=== PATIENT | male | born 1935 | race Caucasian/White ===

== ENCOUNTER 2020-09-03 23:59 | Inpatient (IN) | payer MEDICARE, SELFPAY ==
[~2020-09-03] VITALS: Ht 177.8 cm; Wt 66.7 kg
--- NOTE | 2020-09-04 00:01 | NUR ---
VIDAL CARRASCO TAKEN TO BED #3
[2020-09-04] MEDS ORDERED: NACL 0.9% 1,000 ML IV ONE (00:10)
[2020-09-04 00:11] VITALS: BP 121/64
[2020-09-04 00:30] LABS: BASOPHILS % (AUTO) 0.1 % (0.0-2.0); HEMATOCRIT 36.8 % (36-52); HEMOGLOBIN 12.5 g/dL (12.0-18.0); LYMPHOCYTES # (AUTO) 0.6 K/uL (2.0-11.5); LYMPHOCYTES % (AUTO) 6.7 % (20.5-51.1); MEAN CORPUSCULAR HEMOGLOBIN 31 pg (27-31); MEAN CORPUSCULAR HGB CONC 34 g/dL (33-37); MEAN CORPUSCULAR VOLUME 92.9 fL (80-94); MONOCYTES # (AUTO) 0.7 K/uL (0.8-1.0); MONOCYTES % (AUTO) 7.8 % (1.7-9.3); NEUTROPHILS % (AUTO) 85.4 % (42.2-75.2); PLATELET COUNT (AUTO) 153 K/uL (140-450); RED BLOOD CELL COUNT(AUTO) 3.97 MIL/uL (4.20-6.10); RED CELL DISTRIBUTION WIDTH 13.5 % (11.6-13.7); WHITE BLOOD COUNT (AUTO) 9.3 K/uL (4.8-10.8)
[2020-09-04 00:42] LABS: ANION GAP 12.7 (8-16); CARBON DIOXIDE 26.3 mmol/L (21-32); CHLORIDE 97 mmol/L (98-107); CREATININE 1.2 mg/dL (0.6-1.3); GLUCOSE 103 mg/dL (74-106); SODIUM SERUM 132 mmol/L (136-145); UREA NITROGEN, BLOOD 24 mg/dL (7-18)
--- NOTE | 2020-09-04 00:44 | NUR ---
X-Ray at bedside.
--- NOTE | 2020-09-04 00:48 | NUR ---
BLOOD DRAW DURING IV START
[2020-09-04 00:49] LABS: ASPARTATE AMINOTRANSFERASE 20 U/L (15-37); LIPASE 53 U/L (73-393); PROTHROMBIN TIME 10.7 secs (10.8-13.4); TOTAL BILIRUBIN 0.6 mg/dL (0.0-1.0)
--- NOTE | 2020-09-04 00:49 | NUR ---
85/M BIBA C/O INCREASED ALOC SINCE YESTERDAY. PT CAME IN WITH INDWELLING CATHETER. UPON ASSESSMENT PT AOX3 WITH SOME CONFUSION, PERRL. PT CALM AND COOPERATIVE TO CARE. DENIES ANY PAIN OR DISCOMFORT. PT FEBRILE, OTHER VS STABLE. PMH: HTN, DEMENTIA NKDA
--- NOTE | 2020-09-04 00:55 | NUR ---
PT TAKEN TO CT
--- NOTE | 2020-09-04 01:06 | NUR ---
PT BACK FROM CT
[2020-09-04 01:20] LABS: APPEARANCE,URINE CLOUDY (CLEAR); BILIRUBIN,URINE 1+ (NEGATIVE); BLOOD, URINE 3+ (NEGATIVE); COLOR,URINE YELLOW (YELLOW); LEUKOCYTE ESTERASE ,URINE 2+ (NEGATIVE); NITRITE, URINE NEGATIVE (NEGATIVE); PH,URINE 5.5 (5.0-9.0); UGLUCOSE NEGATIVE (NEGATIVE)
[2020-09-04 01:27] LABS: RBC,URINE 0-5 /HPF (0-5); WBC,URINE 20-60 /HPF (0-5)
[2020-09-04] MEDS ORDERED: ACETAMINOPHEN 325 MG TAB PO ONE (01:35)
[2020-09-04] MEDS ORDERED: PIPERACILLIN/TAZOBACTAM 3.375 GM in DEXTROSE 5% 50 ML IV ONE (01:35)
[2020-09-04] MEDS ORDERED: PIPERACILLIN/TAZOBACTAM 3.375 GM VIAL IV ONE (01:53)
[2020-09-04] MEDS ORDERED: AMLO5TAB PO (02:25)
[2020-09-04] MEDS ORDERED: TRAZ-343 PO (02:25)
[2020-09-04] MEDS ORDERED: BUPR150T12 PO (02:25)
[2020-09-04] MEDS ORDERED: TEMA30CA23 PO (02:25)
[2020-09-04] MEDS ORDERED: TAMS0.4C96 PO (02:25)
--- NOTE | 2020-09-04 03:38 | NUR ---
RECEIVED TELEPHONE REPORT FROM ER NURSE BETHANY. PT AOX2, CONFUSED ON ROOM AIR. CC ALOC. DX ALOC, UTI. HX HTN DEMENTIA, PROSTATE SX. FROM HOME. CXR NEGATIVE, HEAD CT NEGATIVE. SKIN INTACT. VIERA IN PLACE. WAS GIVEN TYLENOL, ZOSYN, NS 1L IN ER. IV SITE RAC 20G. TALAT NEGATIVE. WILL GET THE ROOM READY Addendum: 09/04/20 at 0409 by Douglas Ellison RN IV SITE RFA
--- NOTE | 2020-09-04 03:45 | NUR ---
Patient will be admitted to care of Dr. Vazquez. Admited to Telemetry. Will go to room 110B. Belongings list completed. Report to Douglas BUI. Pt transported by 2 RNs.
[2020-09-04 04:00] VITALS: BP 94/56
--- NOTE | 2020-09-04 04:00 | NUR ---
PATIENT ARRIVED TO UNIT. ON TELE, AOX2 ON ROOM AIR, CONFUSED. NO S/S RESPIRATORY DISTRESS. NO C/O PAIN AT THIS TIME. IV SITE RFA 20G PATENT INTACT. SKIN WARM DRY INTACT. LUNGS CLEAR. BOWEL SOUNDS ACTIVE. VIERA CATH IN PLACE, DRAINING YELLOW URINE, INSERTED BY ER ON 09/04/20. HAS HEARING AID TO LEFT EAR. ORIENTED TO ROOM. SAFETY MEASURES IN PLACE. CALL LIGHT WITHIN REACH. WILL CONTINUE TO MONITOR. MRSA SWAB AND VITAL SIGNS OBTAINED.
--- NOTE | 2020-09-04 04:12 | NUR ---
NOTIFIED WEIR FISHER DR. HUTTON PATIENT'S EKG BIGEMINY. NEW ORDERS RECEIVED
--- NOTE | 2020-09-04 04:45 | NUR ---
PATIENT ASLEEP IN BED. RESPIRATIONS EVEN UNLABORED. NO DISTRESS NOTED. CALL LIGHT WITHIN REACH. WILL CONTINUE TO MONITOR
--- NOTE | 2020-09-04 07:16 | NUR ---
ENDORSED PATIENT TO DAY RN FOR CONTINUITY OF CARE. PATIENT IS IN STABLE CONDITION
--- NOTE | 2020-09-04 07:17 | NUR ---
RECEIVED BEDSIDE REPORT FROM TECHNICAL OPERATOR NURSE. PATIENT SUPINE IN BED SLEEPING, ANSWERS TO NAME. BREATHING EVEN AND UNLABORED, NO SIGNS OF ACUTE DISTRESS NOTED ON RA. VIERA CATHETER IN PLACE, DRAINING TO GRAVITY. R FA 20G SL. SKIN INTACT. BED IN LOW POSITION, SOLE LEVELER MACHINE IN PLACE, SAFETY MEASURES IN PLACE.
[2020-09-04 08:00] VITALS: BP 109/75
[2020-09-04] MEDS ORDERED: DOCUSATE SODIUM 100 MG GELCAP PO PRN (08:50)
[2020-09-04] MEDS ORDERED: MORPHINE SULFATE 2 MG/ML SYR IVP PRN (08:50)
[2020-09-04] MEDS ORDERED: ONDANSETRON 4 MG/2 ML VIAL IVP PRN (08:50)
[2020-09-04] MEDS ORDERED: LORazepam 2 MG/ML VIAL IM/IVP PRN (08:50)
[2020-09-04] MEDS: NACL 0.9% 1,000 ML IV SCH (09:19)
[2020-09-04] MEDS: cefTRIAXone 1,000 MG in NACL 0.9% 50 ML IV SCH (09:20)
--- NOTE | 2020-09-04 09:30 | NUR ---
ADMINISTERED SCHEDULED MEDS PER MD ORDER. FLUID AND ABX STARTED WITH ALL NEW TUBING AND LABELED. MED EDUCATION PROVIDED, REINFORCEMENT NEEDED. PAINTING INSTRUCTOR AT BESIDE ASSISTING WITH FEEDING.
--- NOTE | 2020-09-04 10:15 | NUR ---
PT WAS SEEN FOR DYSPHAGIA. PT WAS ABLE TO SAFELY SWALLOW REGULAR DIET WITH THIN LIQUID WITHOUT S/S OF ASPIRATION. RECOMMENDATION REGULAR DIET WITH THIN LIQUID
[2020-09-04 10:32] LABS: BASOPHILS % (AUTO) 0.4 % (0.0-2.0); EOSINOPHILS % (AUTO) 0.2 % (0.0-4.0); HEMATOCRIT 35.7 % (36-52); HEMOGLOBIN 12.1 g/dL (12.0-18.0); LYMPHOCYTES # (AUTO) 0.5 K/uL (2.0-11.5); LYMPHOCYTES % (AUTO) 5.9 % (20.5-51.1); MEAN CORPUSCULAR HEMOGLOBIN 31 pg (27-31); MEAN CORPUSCULAR HGB CONC 34 g/dL (33-37); MEAN CORPUSCULAR VOLUME 92.3 fL (80-94); MONOCYTES # (AUTO) 0.6 K/uL (0.8-1.0); MONOCYTES % (AUTO) 6.7 % (1.7-9.3); NEUTROPHILS # (AUTO) 7.5 K/uL (1.8-7.7); NEUTROPHILS % (AUTO) 86.8 % (42.2-75.2); PLATELET COUNT (AUTO) 138 K/uL (140-450); RED BLOOD CELL COUNT(AUTO) 3.86 MIL/uL (4.20-6.10); RED CELL DISTRIBUTION WIDTH 13.1 % (11.6-13.7); WHITE BLOOD COUNT (AUTO) 8.6 K/uL (4.8-10.8)
[2020-09-04 11:08] LABS: PROTHROMBIN TIME 10.7 secs (10.8-13.4)
--- NOTE | 2020-09-04 11:11 | NUR ---
MARTA, PATIENT DAUGHTER CALLED FOR PATIENT UPDATES, ALL QUESTIONS ANSWERED AT THIS TIME.
[2020-09-04 11:20] LABS: ALBUMIN 2.6 g/dL (3.4-5.0); ANION GAP 15.7 (8-16); ASPARTATE AMINOTRANSFERASE 24 U/L (15-37); CARBON DIOXIDE 26.3 mmol/L (21-32); CHLORIDE 98 mmol/L (98-107); CREATININE 1.1 mg/dL (0.6-1.3); GLUCOSE 84 mg/dL (74-106); SODIUM SERUM 136 mmol/L (136-145); TOTAL BILIRUBIN 0.6 mg/dL (0.0-1.0); UREA NITROGEN, BLOOD 28 mg/dL (7-18)
[2020-09-04 11:24] LABS: CHOL/HDL RATIO 3.5 (1-4.5); FREE T4 (FREE THYROXINE) 1.38 ng/dL (0.76-1.46); MAGNESIUM 1.9 mg/dL (1.8-2.4); PHOSPHORUS 3.9 mg/dL (2.5-4.9); THYROID STIMULATING HORMONE 0.64 uIU/mL (0.34-3.74)
--- NOTE | 2020-09-04 11:34 | NUR ---
PATIENT HAS BEEN SCREENED AND CATEGORIZED LOW NUTRITION RISK. PATIENT WILL BE SEEN WITHIN 7 DAYS OF ADMISSION. 09/10/[address]
[2020-09-04 12:00] VITALS: BP 120/72
--- NOTE | 2020-09-04 13:20 | NUR ---
DAUGHTER, MARTA, AT BEDSIDE WITH PATIENT AT THIS TIME.
[2020-09-04 16:00] VITALS: BP 122/79
[2020-09-04] MEDS: ACETAMINOPHEN 325 MG TAB PO PRN (18:03)
--- NOTE | 2020-09-04 19:13 | NUR ---
ENDORSED TO NIGHTSHIFT NURSE FOR CONTINUITY OF CARE. PATIENT STABLE AT THIS TIME.
--- NOTE | 2020-09-04 19:14 | NUR ---
RECEIVED BEDSIDE REPORT FROM DAY RN. PT IS AAOX2. [place] WITH HEARING AID ON L EAR. RESPIRATIONS ARE EQUAL AND UNLABORED ON RA. LUNG SOUNDS ARE CLEAR. SKIN IS WARM DRY AND INTACT. IV ON MICHELINE 20G NS INFUSING AT 100ML/H. VIERA CATH IN PLACE DRAINING YELLOW URINE. PT ON FALL PRECAUTION. POC DISCUSSED WITH PT. CALL LIGHT IS WITHIN REACH. WILL CONTINUE TO MONITOR.
--- NOTE | 2020-09-04 19:14 | NUR ---
ENDORSED TO CUSTOM WOOD STAIR BUILDER NURSE FOR CONTINUITY OF CARE. PATIENT STABLE AT THIS TIME.
--- NOTE | 2020-09-04 19:50 | NUR ---
IV CATH FOUND AT BEDSIDE TABLE. NO BLEEDING NOTED. IC CATH INTACT. NEW IV PLACED ON L FA 22G ON FIRST ATTEMPT PT TOLERATED WELL IVF NOW INFUSING PER ORDERS. ENCOURAGE PT TO LEAVE IV ALONE PT IS AAOX2. WILL MONITOR FREQUENTLY.
[2020-09-04 20:00] VITALS: BP 104/51
--- NOTE | 2020-09-04 22:30 | NUR ---
PAGED DR MURILLO FOR BLOOD CX:POSITIVE COCCI IN CLUSTER NEW ORDER FOR CONSULT WITH DR EDWARDS.
--- NOTE | 2020-09-05 00:10 | NUR ---
ROUNDS MADE. PT RESTING IN BED APPEARS TO BE ASLEEP. CHEST RISE AND FALL NOTED. CALL LIGHT IS WITHIN REACH. WILL CONTINUE TO MONITOR.
[2020-09-05] MEDS: NACL 0.9% 1,000 ML IV SCH ×2 (00:45→22:17)
[2020-09-05] MEDS: ZOLPIDEM 5 MG TAB PO PRN ×2 (02:10→22:11)
--- NOTE | 2020-09-05 02:10 | NUR ---
PATIENT ATTEMPT TO GET OUT OF BED. REDIRECTED PATIENT. PT REQUESTING MEDICATION FOR INSOMNIA. AMBIEN GIVEN. ALL NEEDS. BED ALARM ON. WILL CONTINUE TO MONITOR.
[2020-09-05 04:00] VITALS: BP 123/85
[2020-09-05] MEDS: ACETAMINOPHEN 325 MG TAB PO PRN ×2 (04:49→15:29)
--- NOTE | 2020-09-05 04:49 | NUR ---
ADMIN TYLENOL FOR TEMP 100.4 CO[address] ME[address] ARE IN PLACE. BLANKETS REMOVED. WILL CONTINUE TO MONITOR.
[2020-09-05 06:13] LABS: ANION GAP 9.9 (8-16); CHLORIDE 99 mmol/L (98-107); CREATININE 1.1 mg/dL (0.6-1.3); GLUCOSE 95 mg/dL (74-106); POTASSIUM 3.9 mmol/L (3.5-5.1); SODIUM SERUM 131 mmol/L (136-145); UREA NITROGEN, BLOOD 17 mg/dL (7-18)
[2020-09-05 06:21] LABS: MAGNESIUM 1.9 mg/dL (1.8-2.4); PHOSPHORUS 2.7 mg/dL (2.5-4.9)
[2020-09-05 06:22] LABS: BASOPHILS % (AUTO) 0.1 % (0.0-2.0); EOSINOPHILS % (AUTO) 0.2 % (0.0-4.0); HEMATOCRIT 33.4 % (36-52); HEMOGLOBIN 11.4 g/dL (12.0-18.0); LYMPHOCYTES # (AUTO) 0.8 K/uL (2.0-11.5); LYMPHOCYTES % (AUTO) 10.4 % (20.5-51.1); MEAN CORPUSCULAR HEMOGLOBIN 32 pg (27-31); MEAN CORPUSCULAR HGB CONC 34 g/dL (33-37); MEAN CORPUSCULAR VOLUME 92.4 fL (80-94); MONOCYTES # (AUTO) 0.7 K/uL (0.8-1.0); MONOCYTES % (AUTO) 8.7 % (1.7-9.3); NEUTROPHILS # (AUTO) 6.4 K/uL (1.8-7.7); NEUTROPHILS % (AUTO) 80.6 % (42.2-75.2); PLATELET COUNT (AUTO) 133 K/uL (140-450); RED BLOOD CELL COUNT(AUTO) 3.62 MIL/uL (4.20-6.10); WHITE BLOOD COUNT (AUTO) 7.9 K/uL (4.8-10.8)
--- NOTE | 2020-09-05 07:21 | NUR ---
PT ENDORSED BY NIGHT SIFT NURSE FOR CONTINUITY OF CARE, POC DISCUSSED. PT IS RESTING COMFORTABLY IN BED WITH A LEFT FOREARM 22GAUGE, NORMAL SALINE IS DISCONNECTED FROM PT DUE TO PT REPEATEDLY REMOVING IV SITE DURING THE NIGHT. PT IS ALERT AND ORIENTED X1, TO PERSON. PT ASKED WHY HE IS IN THE HOSPITAL. PT IS ON RA WITH CHEST RISING AND FALLING EVEN AND UNLABORED. SAFETY MEASURES IN PLACE, CALL LIGHT WITHIN REACH, WILL CONTINUE TO MONITOR.
--- NOTE | 2020-09-05 07:28 | NUR ---
GAVE BEDSIDE REPORT TO DAY RN. PT ENDORSED IN STABLE CONDITION.
[2020-09-05 08:00] VITALS: BP 108/88
[2020-09-05] MEDS: cefTRIAXone 1,000 MG in NACL 0.9% 50 ML IV SCH (09:04)
--- NOTE | 2020-09-05 09:07 | NUR ---
DC PLANN[age] YRS OLD MALE PATIENT WAS ADMITTED FROM HOME WITH A DX OF ALTERED AND UTI. PATIENT HAS A HX OF HTN AND DEMENTIA. CXR SHOWED NO EVIDENCE OF ACUTE CARDIOPULMONARY DISEASE. RAPID COVID TEST NEGATIVE. CT HEAD NEGATIVE. BLOOD AND URINE CULTURE PENDING. STARTED ON IVF, IV ABX ROCEPHIN AND CONTINUE HOME MEDS. CONSULTED WITH UROLOGIST AND SAP BOBJ DEVELOPER. DC PLAN TO GO HOME WHEN STABLE. CM TO FOLLOW Addendum: 09/08/20 at 1223 by Suzie He RN DC PLANNING: PATIENT HAS AN ORDER TO GO TO SNF FOR PHYSICAL THERAPY PER FAMILY DON'T WANT HIM TO GO TO SNF STATED HE WILL HAVE 24 HR CARE WITH FAMILY. NOTIFIED DR SMITH. DC PLAN TO GO HOME WITH FAMILY. CM TO FOLLOW Addendum: 09/08/20 at 1447 by Suzie He RN DC PLANNING: CALLED PT'S DAUGHTER MARTA CLARIFIED THAT THEY ARE REFUSING FOR THEIR DAD TO GO TO SNF OR HOME HEALTH/ PER MARTA THEY WONT'S BE HOME FOR A WEEK OR MORE AND NO NEED FOR HOME HEALTH. NOTIFIED DR SMITH. CM TO FOLLOW Addendum: 09/10/20 at 1021 by Suzie He RN DC PLANNING: LATE ENTRY OUT PATIENT FOLLOW UP APPOINTMENT WITH PT'S PCP DR SIMMONS SCHEDULED ON 09/10/20 AT 11:30 AM. OFFICE ADDRESS [address] [place] [address], [id number] PHONE # [phone]. APPOINTMENT REMINDER GIVEN TO PATIENT. PT VERBALIZED UNDERSTANDING.
--- NOTE | 2020-09-05 09:21 | NUR ---
SCHEDULED ABX ADMINISTERED. IV SITE INTACT, PATENT AND PT TOLERATED ADMINISTRATION. PT EDUCATION PROVIDED. PT VERBALIZED ALL NEEDS ARE MET. SAFETY MEASURES IN PLACE, CALL LIGHT WITHIN REACH. WILL CONTINUE TO MONITOR.
--- NOTE | 2020-09-05 11:11 | NUR ---
PT VIERA OUTPUT IS 150CC. PT VERBALIZED ALL NEEDS ARE MET, BED ALARM IS ON. SAFETY MEASURES IN PLACE, CALL LIGHT WITHIN REACH. WILL CONTINUE TO MONITOR.
--- NOTE | 2020-09-05 11:56 | NUR ---
PT DAUGHTER AT BEDSIDE, STATED PT HAS A CHRONIC HX OF UTI'S AND HE NEVER GETS THIS SICK. VERBALIZED THAT SHE READ ONLINE THAT THIS CAN BE FROM HIS SHINGLES VACCINE HE RECEIVED ON TUESDAY. EDUCATION PROVIDED ON UTIS CAN INCREASE ALOC BUT PT INSISTS ON IT BEING THE VACCINE AND WOULD LIKE TO SPEAK WITH THE DOC. DR. MURILLO NOTIFIED AND STATED HE WILL COME SPEAK WITH HER. PT IS IN STABLE CONDITION AND SAFETY MEASURES IN PLACE. CALL LIGHT WITHIN REACH. WILL CONTINUE TO MONITOR.
[2020-09-05] MEDS: ACYCLOVIR 800 MG TAB PO SCH ×3 (12:39→20:15)
--- NOTE | 2020-09-05 12:41 | NUR ---
PT ASSISTED TO BATHROOM. UNABLE TO HAVE A BM. SCHEDULED MEDICATION ADMINISTERED. PT EDUCATION PROVIDED, PT NODDED IN UNDERSTAND. SAFETY MEASURES IN PLACE, CALL LIGHT WITHIN REACH. WILL CONTINUE TO MONITOR.
--- NOTE | 2020-09-05 13:34 | NUR ---
ROUNDED ON PT, PT IS RESTING COMFORTABLE IN BED WITH NO SIGNS OF ACUTE DISTRESS. SAFETY MEASURES IN PLACE, CALL LIGHT WITHIN REACH WILL CONTINUE TO MONITOR.
[2020-09-05] MEDS ORDERED: VANCOMYCIN PER PHARMACY MC PRN (13:55)
[2020-09-05] MEDS ORDERED: VANCOMYCIN 1,000 MG in DEXTROSE 5% 250 ML IV SCH (14:30)
--- NOTE | 2020-09-05 15:29 | NUR ---
ANTIPYRETIC ADMINISTERED PER MD ORDER FOR FEVER OF 100.4. VANCO HUNG PER SCHEDULED. PT EDUCATION PROVIDED. SAFETY MEASUES IN PLACE, WILL CONTINUE TO MONITOR.
[2020-09-05 16:00] VITALS: BP 112/47
--- NOTE | 2020-09-05 18:21 | NUR ---
PT IS RESTING COMFORTABLY WITH NO SIGNS OF ACUTE DISTRESS. SAFETY MEASURES IN PLACE, CALL LIGHT WITHIN REACH. WILL CONTINUE TO MONITOR.
--- NOTE | 2020-09-05 19:31 | NUR ---
pt endorsed to chess instructor for continuity of care in stable condition
--- NOTE | 2020-09-05 19:32 | NUR ---
RECEIVED BEDSIDE ENDORSEMENT FROM AM SHIFT RN. PATIENT IS AAOX1-[address], ON ROOM AIR, NO SOB, HARD OF HEARING W/ LEFT HEARING AID, DENIES PAIN, IVF INFUSING, ON BED REST, W/ INDWELLING VIERA CATH IN PLACE, SKIN INTACT, SAFETY MEASURES IN PLACE, PLAN OF CARE DISCUSSED, CALL LIGHT WITHIN REACH.
[2020-09-05] MEDS: DOCUSATE SODIUM 100 MG GELCAP PO SCH (20:15)
--- NOTE | 2020-09-05 20:20 | NUR ---
PT ASLEEP, WOKE HIM UP, HOB ELEVATED, DUE MEDS GIVEN ORDERED, MED EDUCATION PROVIDED, GAVE WARM BLANKET, KEPT COMFORTABLE, TOLERATED WELL, WILL CONTINUE TO MONITOR, CALL LIGHT WITHIN REACH.
--- NOTE | 2020-09-05 22:20 | NUR ---
PATIENT REQUESTED FOR SLEEPING PILL, AMBIEN PO GIVEN ORDERED, TOLERATED WELL, VIERA BAG EMPTIED 1L URINE OUTPUT, KEPT COMFORTABLE, WILL CONTINUE TO MONITOR, SAFETY MEASURES IN PLACE, CALL LIGHT WITHIN REACH.
--- NOTE | 2020-09-06 | NUR ---
CHECKED PATIENT, ASLEEP, RESPIRATION EVEN AND UNLABORED, CALL LIGHT WITHIN REACH.
--- NOTE | 2020-09-06 02:23 | NUR ---
PATIENT TRIED TO GET UP, AND SAID HE'LL EMPTY HIS VIERA BAG, I TOLD HIM THAT I'LL DO IT. EMPTIED 600 ML. SECURED VIERA CATH IN PLACE, WILL CONTINUE TO MONITOR, CALL LIGHT WITHIN REACH.
[2020-09-06 04:00] VITALS: BP 139/74
[2020-09-06] MEDS: ACYCLOVIR 800 MG TAB PO SCH ×2 (05:51→08:45)
--- NOTE | 2020-09-06 05:51 | NUR ---
HOB ELEVATED, ACYCLOVIR 800 MG PO GIVEN ORDERED, TOLERATED WELL, CALL LIGHT WITHIN REACH.
--- NOTE | 2020-09-06 06:52 | NUR ---
PATIENT STABLE, NO DISTRESS, NO SOB, ALL NEEDS ATTENDED, DENIES PAIN, KEPT COMFORTABLE, SAFETY MEASURES IN PLACE, CALL LIGHT WITHIN REACH.
--- NOTE | 2020-09-06 07:15 | NUR ---
PATIENT REPORT RECEIVED FROM PIN FEATHER MACHINE OPERATOR NURSE AT BEDSIDE FOR CONTINUITY OF CARE. PATIENT AOX1, CONFUSED, YOCHA DEHE. IV SITE INTACT, ASYMPTOMATIC, INFUSING IVF WELL. VIERA CATHETER IN PLACE, DRAINING TO GRAVITY WITH YELLOW URINE. VERBALIZED PLAN OF CARE, HE VERBALIZED UNDERSTANDING BUT WANTS TO GO HOME. CALL LIGHT WITHIN REACH, SAFETY PRECAUTIONS IN PLACE, WILL CONTINUE TO MONITOR PATIENT.
[2020-09-06 08:00] VITALS: BP 107/59
[2020-09-06] MEDS: DOCUSATE SODIUM 100 MG GELCAP PO SCH ×2 (08:45→20:32)
[2020-09-06] MEDS: cefTRIAXone 1,000 MG in NACL 0.9% 50 ML IV SCH (08:46)
--- NOTE | 2020-09-06 08:46 | NUR ---
ORDERED MEDICATION GIVEN TO PATIENT. ORAL TEMP 99.3. PATIENT DENIES COMPLAINTS AT THIS TIME. AOX2. VERBALIZED PLAN OF CARE, HE VERBALIZED UNDERSTANDING. PATIENT STATES THAT HE WANTS TO GO HOME, INFORMED HIM THAT THE DOCTORS WILL IN TO SPEAK TO HIM ABOUT PLAN OF CARE. PATIENT CONFUSED, THINKING DAUGHTER IS ALSO IN HOSPITAL AND NEVER VISITING HIM. CALL LIGHT WITHIN REACH, BED IN LOWEST POSITION WITH LOCKS ON, WILL CONTINUE TO MONITOR PATIENT.
[2020-09-06 08:56] LABS: CARBON DIOXIDE 26.6 mmol/L (21-32); CHLORIDE 101 mmol/L (98-107); CREATININE 0.9 mg/dL (0.6-1.3); GLUCOSE 97 mg/dL (74-106); POTASSIUM 3.6 mmol/L (3.5-5.1); SODIUM SERUM 133 mmol/L (136-145); UREA NITROGEN, BLOOD 14 mg/dL (7-18)
[2020-09-06 10:28] LABS: BASOPHILS % (AUTO) 0.4 % (0.0-2.0); EOSINOPHILS % (AUTO) 0.5 % (0.0-4.0); HEMATOCRIT 31.9 % (36-52); HEMOGLOBIN 10.9 g/dL (12.0-18.0); LYMPHOCYTES # (AUTO) 0.6 K/uL (2.0-11.5); MEAN CORPUSCULAR HEMOGLOBIN 31 pg (27-31); MEAN CORPUSCULAR HGB CONC 34 g/dL (33-37); MEAN CORPUSCULAR VOLUME 91.6 fL (80-94); MONOCYTES # (AUTO) 0.8 K/uL (0.8-1.0); MONOCYTES % (AUTO) 13.7 % (1.7-9.3); NEUTROPHILS # (AUTO) 4.2 K/uL (1.8-7.7); NEUTROPHILS % (AUTO) 74.4 % (42.2-75.2); PLATELET COUNT (AUTO) 137 K/uL (140-450); RED BLOOD CELL COUNT(AUTO) 3.48 MIL/uL (4.20-6.10); RED CELL DISTRIBUTION WIDTH 13.1 % (11.6-13.7); WHITE BLOOD COUNT (AUTO) 5.7 K/uL (4.8-10.8)
--- NOTE | 2020-09-06 11:49 | NUR ---
Patient confused, wondering where daughter is. Provided him with her phone number and oriented pt to room phone. Attempted to call daughter Ro, no answer at this time. Patient has no complaints at this time. Call light within reach, bed in lowest setting with locks and alarm on. Will continue to monitor patient.
--- NOTE | 2020-09-06 14:20 | NUR ---
DAUGHTER MARTA AT BEDSIDE. PATIENT RESTING. NO COMPLAINTS AT THIS TIME. UPDATED MARTA WITH PT'S CURRENT PLAN OF CARE. MARTA ASKED ABOUT ACYCLOVIR. PAGED DR. MURILLO AND INFORMED THAT MARTA HAS QUESTIONS AND SHE WOULD LIKE IT CONTINUED. PROVIDED DR. MURILLO WITH HER TELEPHONE #.
[2020-09-06 16:15] VITALS: BP 112/60
--- NOTE | 2020-09-06 16:30 | NUR ---
PT RESTING IN BED, NO S/S OF SOB OR DISTRESS, RESPIRATIONS EVEN AND UNLABORED, VS WNL. NO FEVER. WILL CONTINUE TO MONITOR PATIENT.
[2020-09-06] MEDS: NACL 0.9% 1,000 ML IV SCH (17:55)
--- NOTE | 2020-09-06 18:45 | NUR ---
GRANT LOZANO AT BEDSIDE ASSISTING PT WITH DINNER. NO COMPLAINTS AT THIS TIME. WILL CONTINUE TO MONITOR PATIENT AND ENDORSE TO AMMUNITION STOREKEEPER NURSE.
--- NOTE | 2020-09-06 19:25 | NUR ---
RECEIVED BEDSIDE ENDORSEMENT FROM AM SHIFT RN. PATIENT IS AAOX1-2, W/ HX OF DEMENTIA, ROOM AIR, NO SOB, IVF INFUSING, SKIN INTACT, VIERA CATH IN PLACE, DAUGHTER MARTA IS AT BEDSIDE, SAFETY MEASURES IN PLACE, PLAN OF CARE DISCUSSED, CALL LIGHT WITHIN REACH.
[2020-09-06 20:00] VITALS: BP 143/71
--- NOTE | 2020-09-06 20:34 | NUR ---
ELEVATED HOB, DUE MED GIVEN ORDERED, COLACE PO, TOLERATED WELL, WILL CONTINUE TO MONITOR, CALL LIGHT WITHIN REACH. KEPT COMFORTABLE.
[2020-09-07] MEDS: ZOLPIDEM 5 MG TAB PO PRN ×2 (01:35→22:24)
--- NOTE | 2020-09-07 01:37 | NUR ---
REQUESTED FOR A SLEEPING PILL, AMBIEN 5MG PO GIVEN PRN FOR INSOMNIA, KEPT COMFORTABLE. CALL LIGHT WITHIN REACH.
[2020-09-07 04:00] VITALS: BP 134/73
--- NOTE | 2020-09-07 04:00 | NUR ---
V/S TAKEN, PERINEAL CARE RENDERED. KEPT WARM AND COMFORTABLE.
--- NOTE | 2020-09-07 06:47 | NUR ---
PATIENT STABLE, NO SOB, NO DISTRESS, NO ACUTE EVENTS OVERNIGHT, ALL NEEDS ATTENDED, SAFETY MEASURES IN PLACE, CALL LIGHT WITHIN REACH.
--- NOTE | 2020-09-07 07:25 | NUR ---
RECEIVED BEDSIDE ENDORSEMENT FROM PILLOWCASE TURNER NURSE FOR CONTINUITY OF CARE. PATIENT IS AAOX1-2, W/ HX OF DEMENTIA. RESPIRATIONS EVEN AND UNLABORED. ON ROOM AIR AND S/S OF RESPIRATORY DISTRESS NOTED. SKIN IS WARM, DRY, AND INTACT. IV SITE ON LFA 22G INTACT AND PATENT. IVF INFUSING WELL. VIERA CATH IN PLACE DRAINING BY GRAVITY PLAN OF CARE DISCUSSED. SAFETY MEASURES IN PLACE, BED IN LOW POSITION. CALL LIGHT WITHIN REACH.
[2020-09-07 08:00] VITALS: BP 122/66
[2020-09-07] MEDS: cefTRIAXone 1,000 MG in NACL 0.9% 50 ML IV SCH (09:12)
[2020-09-07] MEDS: DOCUSATE SODIUM 100 MG GELCAP PO SCH ×2 (09:12→20:56)
--- NOTE | 2020-09-07 09:17 | NUR ---
ALL SCHEDULED MEDS GIVEN. PT IS STABLE. NO DISTRESS NOTED. WILL CONTINUE TO MONITOR
[2020-09-07 10:52] LABS: BASOPHILS % (AUTO) 0.2 % (0.0-2.0); EOSINOPHILS # (AUTO) 0.2 K/uL (0-0.4); EOSINOPHILS % (AUTO) 2.8 % (0.0-4.0); HEMATOCRIT 35.2 % (36-52); HEMOGLOBIN 11.8 g/dL (12.0-18.0); LYMPHOCYTES # (AUTO) 0.9 K/uL (2.0-11.5); LYMPHOCYTES % (AUTO) 13.9 % (20.5-51.1); MEAN CORPUSCULAR HEMOGLOBIN 31 pg (27-31); MEAN CORPUSCULAR HGB CONC 34 g/dL (33-37); MONOCYTES # (AUTO) 0.8 K/uL (0.8-1.0); MONOCYTES % (AUTO) 12.1 % (1.7-9.3); NEUTROPHILS # (AUTO) 4.4 K/uL (1.8-7.7); PLATELET COUNT (AUTO) 180 K/uL (140-450); RED BLOOD CELL COUNT(AUTO) 3.78 MIL/uL (4.20-6.10); RED CELL DISTRIBUTION WIDTH 13.2 % (11.6-13.7); WHITE BLOOD COUNT (AUTO) 6.3 K/uL (4.8-10.8)
[2020-09-07 10:59] LABS: ANION GAP 4.3 (8-16); CARBON DIOXIDE 33.2 mmol/L (21-32); CHLORIDE 104 mmol/L (98-107); CREATININE 0.8 mg/dL (0.6-1.3); GLUCOSE 137 mg/dL (74-106); POTASSIUM 3.5 mmol/L (3.5-5.1); SODIUM SERUM 138 mmol/L (136-145); UREA NITROGEN, BLOOD 11 mg/dL (7-18)
[2020-09-07 11:05] LABS: MAGNESIUM 1.9 mg/dL (1.8-2.4); PHOSPHORUS 2.7 mg/dL (2.5-4.9)
--- NOTE | 2020-09-07 11:45 | NUR ---
CHECKED ON PATIENT. PATIENT IS RESTING IN BED. NO DISTRESS NOTED. DAUGHTER AT BEDSIDE WILL CONTINUE TO MONITOR.
[2020-09-07] MEDS: NACL 0.9% 1,000 ML IV SCH (13:25)
[2020-09-07] MEDS: HYDROcodone/APAP 5/325 MG 1 TAB TAB PO PRN ×2 (13:34→23:28)
--- NOTE | 2020-09-07 13:34 | NUR ---
PATIENT COMPLAINED OF GENERALIZED PAIN 6/10. ADMINISTERED NORCO PO PER MD ORDERED.
--- NOTE | 2020-09-07 15:30 | NUR ---
CHECKED ON PATIENT. PATIENT IS STABLE. NO RESPIRATORY DISTRESS NOTED. WILL CONTINUE TO MONITOR.
[2020-09-07 16:00] VITALS: BP 130/64
--- NOTE | 2020-09-07 17:30 | NUR ---
CHECKED ON PATIENT. PATIENT IS ASLEEP. NOTED CHEST RISE AND FALL. NO RESPIRATORY DISTRESS NOTED. WILL CONTINUE TO MONITOR.
--- NOTE | 2020-09-07 19:20 | NUR ---
ENDORSED TO ROUTE DRIVER NURSE FOR CONTINUITY OF CARE. PT IS STABLE.
--- NOTE | 2020-09-07 19:20 | NUR ---
RECEIVED PATIENT FROM AM SHIFT NURSE FOR CONTINUITY OF CARE. ALERT AND ABLE TO MAKE NEEDS KNOWN. RESPIRATIONS EVEN, UNLABORED. NO S/S RESPIRATORY DISTRESS. SKIN WARM, DRY. IV SITE PATENT/INTACT, INFUSING FLUIDS WELL. NO C/O PAIN. NO S/S ACUTE DISTRESS. ABDOMEN SOFT, NONTENDER, NONDISTENDED. BOWEL SOUNDS ACTIVE x4 QUADRANTS. VIERA CATHETER PATENT WITH YELLOW URINE DRAINING TO GRAVITY. PLAN OF CARE DISCUSSED. CALL LIGHT IN REACH. SAFETY PRECAUTIONS IN PLACE.
--- NOTE | 2020-09-07 21:00 | NUR ---
DUE MEDS GIVEN. PATIENT IS AWAKE AND RESTING COMFORTABLY IN BED.
--- NOTE | 2020-09-07 23:00 | NUR ---
PATIENT TURNED AND REPOSITIONED FOR COMFORT. NO S/S ACUTE DISTRESS. CALL LIGHT IN REACH.
--- NOTE | 2020-09-08 01:39 | NUR ---
PATIENT IS ASLEEP. CALL LIGHT IN REACH AT ALL TIMES.
--- NOTE | 2020-09-08 03:00 | NUR ---
PATIENT IS ASLEEP. NO S/S ACUTE DISTRESS. CALL LIGHT WITHIN REACH.
[2020-09-08 04:00] VITALS: BP 133/69
--- NOTE | 2020-09-08 05:30 | NUR ---
PATIENT IS ASLEEP. NO S/S ACUTE DISTRESS. CALL LIGHT WITHIN REACH.
[2020-09-08 06:40] LABS: BASOPHILS % (AUTO) 0.3 % (0.0-2.0); EOSINOPHILS # (AUTO) 0.5 K/uL (0-0.4); EOSINOPHILS % (AUTO) 7.2 % (0.0-4.0); HEMATOCRIT 38.6 % (36-52); HEMOGLOBIN 12.7 g/dL (12.0-18.0); LYMPHOCYTES # (AUTO) 1.4 K/uL (2.0-11.5); LYMPHOCYTES % (AUTO) 21.4 % (20.5-51.1); MEAN CORPUSCULAR HEMOGLOBIN 31 pg (27-31); MEAN CORPUSCULAR HGB CONC 33 g/dL (33-37); MEAN CORPUSCULAR VOLUME 93.7 fL (80-94); MONOCYTES # (AUTO) 0.7 K/uL (0.8-1.0); MONOCYTES % (AUTO) 11.4 % (1.7-9.3); NEUTROPHILS # (AUTO) 3.8 K/uL (1.8-7.7); NEUTROPHILS % (AUTO) 59.7 % (42.2-75.2); PLATELET COUNT (AUTO) 215 K/uL (140-450); RED BLOOD CELL COUNT(AUTO) 4.12 MIL/uL (4.20-6.10); RED CELL DISTRIBUTION WIDTH 13.1 % (11.6-13.7); WHITE BLOOD COUNT (AUTO) 6.4 K/uL (4.8-10.8)
[2020-09-08 06:48] LABS: ANION GAP 7.4 (8-16); CARBON DIOXIDE 32.1 mmol/L (21-32); CHLORIDE 103 mmol/L (98-107); CREATININE 0.8 mg/dL (0.6-1.3); GLUCOSE 105 mg/dL (74-106); POTASSIUM 3.5 mmol/L (3.5-5.1); SODIUM SERUM 139 mmol/L (136-145); UREA NITROGEN, BLOOD 10 mg/dL (7-18)
--- NOTE | 2020-09-08 07:30 | NUR ---
PT RECEIVED FROM RN ASSESSMENT RN.PT RESTING IN BED, NO S/S OF DISTRESS. PT ABLE TO MAKE NEEDS KNOWN . CALL LIGHT WITHIN REACH. ALL SAFETY MEASURES ARE IN PLACE.
[2020-09-08] MEDS: cefTRIAXone 1,000 MG in NACL 0.9% 50 ML IV SCH (08:40)
--- NOTE | 2020-09-08 08:44 | NUR ---
MEDICATIONS GIVEN PER MD ORDER. PT TOLERATED WELL. ALL SAFETY MEASURES IN PLACE. CALL LIGHT WITHIN REACH.
[2020-09-08] MEDS: DOCUSATE SODIUM 100 MG GELCAP PO SCH (08:49)
--- NOTE | 2020-09-08 10:25 | NUR ---
PTS PAIN REASSESSED, PT COMPLAINS PAIN IS 11/28. ICE OFFERED Addendum: 09/08/20 at 1054 by Sophie Copeland RN RN WRONG PATIENT
[2020-09-08] MEDS: NACL 0.9% 1,000 ML IV SCH (10:30)
--- NOTE | 2020-09-08 10:43 | NUR ---
FAMILY MEMBER COMPLAINED PT HAS NOT BEEN ON TRAZODONE 150 MG AND WELLBUTRIN 50 MG SINCE DAY OF ADMISSION. FAMILY IS CONCERNED ABOUT WITHDRAWALS. MD SARAH MARTINES
[2020-09-08 12:00] VITALS: BP 147/84
[2020-09-08 12:09] VITALS: BP 147/84
--- NOTE | 2020-09-08 12:20 | NUR ---
FAMILY MEMBER STATED PT IS GOING HOME WITH HER, NOT TO A FACILITY. INTEGRATION LEAD AND MD MARTINES
[2020-09-08] MEDS ORDERED: SULF-58 PO (13:46)
--- NOTE | 2020-09-08 14:50 | NUR ---
PT LEFT UNIT VIA PRIVATE VEHICLE. PT AND FAMILY EDUCATED ON CONTINUITY OF CARE. NEXT FOLLOW UP APPOINTMENT MADE. ID BANDS REMOVED, IV CANULA REMOVED AND CANULA INTACT.
== END 2020-09-08 14:45 | disposition home or self-care (01) | DRG 698 ==
LOC: MED 23:59 → MTU 09-04 03:25
PROVIDERS: ADMIT Family Medicine; ATTEND Family Medicine
DX: T83.518A Infection and inflammatory reaction due to other urinary catheter, initial encounter (principal); G93.41 Metabolic encephalopathy; E43 Unspecified severe protein-calorie malnutrition; I50.43 Acute on chronic combined systolic (congestive) and diastolic (congestive) heart failure; A41.50 Gram-negative sepsis, unspecified; N39.0 Urinary tract infection, site not specified; E87.1 Hypo-osmolality and hyponatremia; Z20.822 Contact with and (suspected) exposure to COVID-19; B96.1 Klebsiella pneumoniae [K. pneumoniae] as the cause of diseases classified elsewhere; F03.90 Unspecified dementia, unspecified severity, without behavioral disturbance, psychotic disturbance, mood disturbance, and anxiety; I11.0 Hypertensive heart disease with heart failure; I25.10 Atherosclerotic heart disease of native coronary artery without angina pectoris; N40.0 Benign prostatic hyperplasia without lower urinary tract symptoms; E86.0 Dehydration; F32.9 Major depressive disorder, single episode, unspecified; G47.00 Insomnia, unspecified; E87.8 Other disorders of electrolyte and fluid balance, not elsewhere classified; E83.51 Hypocalcemia; R31.9 Hematuria, unspecified; R33.9 Retention of urine, unspecified; N28.1 Cyst of kidney, acquired; Z68.21 Body mass index [BMI] 21.0-21.9, adult; Z90.49 Acquired absence of other specified parts of digestive tract; Z79.899 Other long term (current) drug therapy
CPT/HCPCS: 36415; 70450; 71045; 76770; 80048; 80053; 80202; 81001; 82150; 83036; 83605; 83690; 83735; 83880; 84100; 84439; 84443; 84484; 85025; 85610; 85730; 87040; 87081; 87086; 92610; 93005; 96361; 96365; 97110; 97112; 97116; 97163-GP; 97530; 99285; J0696; J2543; J3370; J7030; J7060